=== PATIENT | female | born 2000 | race Hispanic/Latino ===

== ENCOUNTER 2020-02-12 20:25 | Emergency (ER) | payer SELFPAY ==
[~2020-02-12] VITALS: Ht 157.5 cm; Wt 79.4 kg
[2020-02-12] MEDS ORDERED: SPRINTEC1 EACH PO (21:56)
[2020-02-12] MEDS ORDERED: ONDANSETRON ODT8 MG PO (21:57)
[2020-02-12] MEDS ORDERED: BACTRIM DS TAB1 EACH PO (21:58)
== END 2020-02-12 22:10 | disposition home or self-care (01) ==
LOC: FSED 21:22
DX: N92.1 Excessive and frequent menstruation with irregular cycle (principal); N39.0 Urinary tract infection, site not specified; D64.9 Anemia, unspecified; F17.210 Nicotine dependence, cigarettes, uncomplicated
CPT/HCPCS: 99283